=== PATIENT | male | born 1985 | race Hispanic/Latino ===

== ENCOUNTER 2019-09-14 08:00 | Day surgery (SDC) | payer BC ==
[2019-09-08 15:38] LABS: BASOPHILS % (AUTO) 0.6 % (0.0-5.0); EOSINOPHILS % (AUTO) 1.1 % (0.0-8.0); HEMATOCRIT 46.8 % (42-54); LYMPHOCYTES % (AUTO) 22.1 % (21.0-51.0); MEAN CORPUSCULAR HEMOGLOBIN 31.1 pg (27.0-33.0); MEAN CORPUSCULAR HGB CONC 33.3 g/dL (32.0-36.0); MEAN CORPUSCULAR VOLUME 93.2 fL (79-99); MONOCYTES % (AUTO) 10.4 % (3.0-13.0); NEUTROPHILS % (AUTO) 65.5 % (40.0-77.0); PLATELET COUNT (AUTO) 277 K/uL (130-400); RED BLOOD CELL COUNT(AUTO) 5.02 MIL/uL (4.50-6.20); WHITE BLOOD COUNT (AUTO) 9.3 K/uL (4.8-10.8)
[2019-09-08 16:21] VITALS: BP 146/77
[~2019-09-14] VITALS: Ht 162.6 cm; Wt 78.3 kg
[2019-09-14] VITALS (16 sets, daily range): BP systolic 104–148; BP diastolic 57–90
[2019-09-14] MEDS ORDERED: LACTATED RINGERS 1000ML 1,000 ML IV ONE (08:29)
[2019-09-14] MEDS ORDERED: BUPIVACAINE/PF 0.25% 30ML VIAL IJ ONE (09:27)
[2019-09-14] MEDS ORDERED: DEXAMETHASONE SOD PHOSPHATE 10MG/ML 1ML VIAL ONE (09:40)
[2019-09-14] MEDS ORDERED: LIDOCAINE PF 2% 5ML ABBOJECT ONE (09:40)
[2019-09-14] MEDS ORDERED: MIDAZOLAM HCL 1 MG/ML 2ML VIAL ONE (09:41)
[2019-09-14] MEDS ORDERED: ONDANSETRON HCL 4 MG/2 ML VIAL ONE (09:41)
[2019-09-14] MEDS ORDERED: PROPOFOL 10 MG/ML 20ML VIAL IV ONE (09:41)
[2019-09-14] MEDS ORDERED: FENTANYL CITRATE PF 50 MCG/1 ML 2ML VIAL ONE ×2 (09:41→10:05)
[2019-09-14] MEDS ORDERED: MEPERIDINE-PF 25 MG/ML SYG ONE ×2 (10:51→10:59)
== END 2019-09-14 12:12 | disposition home or self-care (01) ==
LOC: DAH 08:00
PROVIDERS: ATTEND Surgery
DX: K42.9 Umbilical hernia without obstruction or gangrene (principal); F17.210 Nicotine dependence, cigarettes, uncomplicated; Z72.89 Other problems related to lifestyle; Z82.49 Family history of ischemic heart disease and other diseases of the circulatory system
CPT/HCPCS: 36415; 49585; 85025; A4215; A4221; A4222; A4223; A4450; A4452; A4606; A4663; J1100; J2001; J2175 ×2; J2250; J2405; J2704; J3010 ×2; J3490; J7120 ×2

== ENCOUNTER 2024-05-04 19:20 | Emergency (ER) | payer SELFPAY ==
[2019-09-14 11:40] VITALS: TEMP 98.9
[~2024-05-04] VITALS: Ht 162.6 cm; Wt 72.6 kg
[2024-05-04 19:22] VITALS: BP 140/86; PULSE 110; RESP 20; TEMP 102
[2024-05-04] MEDS: ibuPROFEN 600 MG TABLET PO ONE (19:41)
[2024-05-04] MEDS: 0.9%NACL 1000ML 2,178 ML IV ONE (19:41)
[2024-05-04] MEDS: cefTRIAXone 1G VIAL IVPB ONE (19:41)
[2024-05-04 19:45] LABS: BASOPHILS # (AUTO) 0.07 K/uL (0.00-0.20); BASOPHILS % (AUTO) 0.5 % (0.0-5.0); EOSINOPHILS % (AUTO) 0.8 % (0.0-8.0); HEMATOCRIT 36.2 % (42-54); IMMATURE GRANULOCYTE ABSOLUTE 0.05 K/uL (0-1); LYMPHOCYTES # (AUTO) 2.7 K/uL (1.0-4.8); LYMPHOCYTES % (AUTO) 20.1 % (21.0-51.0); MEAN CORPUSCULAR HEMOGLOBIN 30.3 pg (27.0-33.0); MEAN CORPUSCULAR HGB CONC 32.6 g/dL (32.0-36.0); MEAN CORPUSCULAR VOLUME 93.1 fL (79-99); MONOCYTES % (AUTO) 7.8 % (3.0-13.0); NEUTROPHILS # (AUTO) 9.3 K/uL (1.8-7.7); NEUTROPHILS % (AUTO) 70.4 % (40.0-77.0); PLATELET COUNT (AUTO) 212 K/uL (130-400); RED BLOOD CELL COUNT(AUTO) 3.89 MIL/uL (4.50-6.20); RED CELL DISTRIBUTION WIDTH 14.9 % (11.0-15.5); WHITE BLOOD COUNT (AUTO) 13.2 K/uL (4.8-10.8)
[2024-05-04 20:08] LABS: CREATININE 0.9 mg/dL (0.5-1.3)
[2024-05-04 20:09] LABS: ALCOHOL, BLOOD 388 mg/dL (0-10); AMMONIA 59 umol/L (11-32)
[2024-05-04 20:16] LABS: B-TYPE NATRIURETIC PEPTIDE 30 pg/mL (0-100)
== END 2024-05-04 20:20 | disposition left against medical advice (07) ==
LOC: EDH 19:20
DX: A41.9 Sepsis, unspecified organism (principal); I10 Essential (primary) hypertension
CPT/HCPCS: 36415; 80048; 82140; 82550; 83605; 83880; 84145; 84484; 85025; 87040; J0696; J7030